=== PATIENT | male | born 1975 | race Caucasian/White ===

== ENCOUNTER 2021-07-02 15:58 | Emergency (ER) | payer SELFPAY ==
[~2021-07-02] VITALS: Ht 188 cm; Wt 90.7 kg
== END 2021-07-02 19:28 | disposition home or self-care (01) ==
LOC: ER1 15:58
DX: U07.1 COVID-19 (principal); Z23 Encounter for immunization; Z88.2 Allergy status to sulfonamides; Z88.7 Allergy status to serum and vaccine
CPT/HCPCS: 99283; M0243